=== PATIENT | male | born 1965 | race Caucasian/White ===

== ENCOUNTER 2024-10-13 07:06 | Emergency (ER) | payer OTHER, SELFPAY ==
[2024-10-13] VITALS (34 sets, daily range): BP systolic 126–174; BP diastolic 68–100; PULSE 61–73; RESP 11–20; TEMP 36.6; O2SAT 97–100
--- NOTE | 2024-10-13 08:06 | W.ED.GENAD ---
Discharge Plan Disposition Patient Disposition: Home Condition: Stable Discharge Details Clinical Impression: GIB (gastrointestinal bleeding), Hypokalemia, Thrombocytopenia, Hyperbilirubinemia Primary Care Provider: Nini Sanchez ED Provider: Merrick Robledo Home Meds and New Rx's Prescriptions: Continued vitamin A 2,400 mcg capsule 2,400 mcg PO DAILY chlorthalidone 50 mg tablet 50 mg PO DAILY carvedilol 6.25 mg tablet 6.25 mg PO DAILY Rx Instructions: must administer with a meal/food Discontinued Xarelto 20 mg tablet 20 mg PO DAILY Rx Instructions: must administer with evening meal Discharge Instructions Instructions: Hypokalemia, Bloody Stools, Adult ED Additional Instructions: Your potassium was found to be low today. You received potassium replacement by IV and oral routes. See attached discharge instructions for hypokalemia. Please follow-up with your primary care physician at the [facility]. You should be seen in follow-up within the next 2 days. Hold your Xarelto at this time given risk of bleeding. Please follow-up with hematology as soon as possible for recommendations regarding ongoing anticoagulation. Return to the emergency department immediately for any worsening or new concerning symptoms. Referrals: Nini Sanchez [Primary Care Provider, Medicine] Discharge Data Discharge Date/Time-TO BE ENTERED AT DEPARTURE: 10/13/24 11:24 HPI General Mode of arrival: ambulatory. Date/Time Provider Initiated Documentation: 10/13/24 07:58. Limitations to Documentation: no limitations. Information obtained by: patient. HPI Narrative: 58-year-old male with complex medical history of alcoholic cirrhosis of the liver, stage III colon cancer status postresection remotely, DVT and pulmonary embolism, had been on anticoagulation including Xarelto for years, has been off Xarelto for about a year while incarcerated, restarted 2 to 3 weeks ago at 20 mg daily dose, now experiencing black stool and bleeding from his mouth. Patient notes since restarting Xarelto 2 to 3 weeks ago, he has been having black stool, 5 times over the past 2 weeks as well as bleeding from his mouth at night. He states he stopped taking Xarelto 2 days ago and bleeding has since resolved. He has had normal bowel movements since. He denies pain. No shortness of breath. He does note chronic bilateral lower extremity edema that worsens during the day and improves at night with his legs elevated. Patient does have IVC filter. Related Data Home Medications ?Medication ?Instructions ?Recorded ?Confirmed carvedilol 6.25 mg tablet 6.25 mg PO DAILY 10/13/24 10/13/24 chlorthalidone 50 mg tablet 50 mg PO DAILY 10/13/24 10/13/24 vitamin A 2,400 mcg capsule 2,400 mcg PO DAILY 10/13/24 10/13/24 Allergies Allergy/AdvReac Type Severity Reaction Status Date / Time No Known Allergies Allergy Unverified 10/13/24 07:18 General Stated Complaint: GI Bleed LAURA: 3 Review of Systems All systems reviewed & are unremarkable except as noted in HPI and below Constitutional Constitutional: Denies fever(s) Cardiovascular Cardiovascular: Denies chest pain Exam Const General: cooperative and no acute distress HENMT Mouth: moist mucous membranes Eyes Conjunctivae: normal conjunctivae Sclera: normal sclerae Neck Neck: trachea midline and supple Resp Auscultation: clear to auscultation bilaterally, no rales, no rhonchi and no wheezes Cardio Rate: regular rate and not tachycardic Rhythm: regular rhythm GI Palpation: soft, not firm, no guarding, no masses, not rigid and nontender Skin General skin exam: no rashes or lesions noted Neuro General: patient alert, patient awake and tone normal Extrem General: edema Laterality: bilateral Psych Appearance: grossly normal Mental Status: mental status grossly normal Course Vital Signs Vital signs: Vital Signs Temperature 36.6 C 10/13/24 07:16 Pulse 63 10/13/24 07:16 Respiratory Rate 20 10/13/24 07:16 Blood Pressure 126/72 10/13/24 07:16 Pulse Oximetry 97 10/13/24 07:16 Temperature 36.6 C 10/13/24 07:16 Temperature Source Oral 10/13/24 07:16 Pulse 63 10/13/24 07:16 Respiratory Rate 20 10/13/24 07:16 Blood Pressure 126/72 10/13/24 07:16 Blood Pressure Position Sitting 10/13/24 07:16 Pulse Oximetry 97 10/13/24 07:16 Oxygen Delivery Method Room Air 10/13/24 07:16 Oxygen Flow Rate 0 10/13/24 07:16 Pain Level 0 10/13/24 07:16 Medical Decision Making 820 -- 58yo male with complex medical history including stage III colon cancer status post remote resection, alcoholic cirrhosis of the liver, DVT and PE, previously on Xarelto, restarted 2 to 3 weeks ago and then subsequently developed black stool and intermittent bleeding from his mouth. Patient is hemodynamically stable. Bleeding has stopped since he has been off Xarelto for 2 days. -- Hypokalemia with potassium 2.9 noted. I will give potassium IV 20 mill equivalents and 40 mill equivalents p.o. 1100 -- Potassium replacement completed. Patient reassessed and remains hemodynamically stable. I reviewed outside medical record from [facility] [place]. Patient has known chronic thrombocytopenia. I had a discussion of risk-benefit of anticoagulation with the patient. Plan will be to hold anticoagulation at this time. Patient will need outpatient follow-up with hematology and may benefit from lower dosage of anticoagulant versus alternative anticoagulant. Medical screening exam was performed and no emergent medical condition identified. Lab Data Lab results reviewed: Yes I reviewed the patient's lab results. Labs: Laboratory Tests Range/Units 10/13/24 08:04 WBC (4.4-10.8) 10^3/uL 5.62 RBC (4.36-5.78) 10^6/uL 3.98 L Hgb (13.5-17.5) g/dL 13.3 L Hct (40.0-50.0) % 38.7 L MCV (80-95) fL 97 H MCH (27.0-33.0) pg 33.4 H MCHC (32.0-36.0) % 34.4 RDW (11.8-14.1) % 14.0 Plt Count (130-400) 10^3/uL 82 L MPV (8.0-11.0) fL 11.7 H Immature Gran % % 0.5 Neutrophils % % 46.4 Lymphocytes % % 26.5 Monocytes % % 20.8 Eosinophils % % 5.3 Basophils % % 0.5 Nucleated RBC % (0.0-0.3) % 0.0 Absolute Neutrophils (1.2-6.7) 10^3/uL 2.60 Absolute Lymphocytes (1.2-3.4) 10^3/uL 1.49 Absolute Monocytes (0.1-0.8) 10^3/uL 1.17 H Absolute Eosinophils (0.0-0.7) 10^3/uL 0.30 Absolute Basophils (0.0-0.2) 10^3/uL 0.03 Sodium (136-145) mmol/L 139 Potassium (3.5-5.1) mmol/L 2.9 L* Chloride (98-107) mmol/L 105 Carbon Dioxide (21.0-32.0) mmol/L 32.5 H Anion Gap (3-11) mmol/L 1.5 L BUN (7-18) mg/dL 12 Creatinine (0.70-1.30) mg/dL 1.0 Est GFR (CKD-EPI 2020) (mL/min/1.73m2) 86.70 Glucose (74-106) mg/dL 102 Calcium (8.5-10.1) mg/dL 8.9 Total Bilirubin (0.2-1.0) mg/dL 1.8 H AST (15-37) U/L 66 H ALT (16-63) U/L 30 Alkaline Phosphatase (46-116) U/L 143 H Total Protein (6.4-8.2) g/dL 7.6 Albumin (3.4-5.0) g/dL 2.7 L ABO/Rh A Positive Antibody Screen NEGATIVE PFSH All Active Problems (Updated 10/13/24 @ 08:41 by Merrick Robledo MD) Hyperbilirubinemia (Acute) Thrombocytopenia (Chronic) Hypokalemia (Acute) GIB (gastrointestinal bleeding) (Chronic) Medical History Xerosis cutis Thrombocytopenia Pulmonary embolism with acute cor pulmonale Alcoholic cirrhosis of liver Social History Smoking/Tobacco Use Status: Never Smoking risk assessment performed?: Yes Alcohol Intake: current Details: drank heavily for quite a while currently none Housing: other
[2024-10-13 08:17] LABS: Abs Immature Grans 0.03 10^3/uL (0.0-0.06); Absolute Basophil Count 0.03 10^3/uL (0.0-0.2); Absolute Lymphocyte Count 1.49 10^3/uL (1.2-3.4); Absolute Monocyte Count 1.17 10^3/uL (0.1-0.8); Basophils % 0.5 %; Eosinophils % 5.3 %; HCT 38.7 % (40.0-50.0); HGB 13.3 g/dL (13.5-17.5); Immature Grans % 0.5 %; Lymphocytes % 26.5 %; MCH 33.4 pg (27.0-33.0); MCHC 34.4 % (32.0-36.0); MCV 97 fL (80-95); MPV 11.7 fL (8.0-11.0); Monocytes % 20.8 %; Neutrophils % 46.4 %; RBC 3.98 10^6/uL (4.36-5.78); RDW-SD 50.2 fL; WBC 5.62 10^3/uL (4.4-10.8)
[2024-10-13 08:26] LABS: Platelet Count 82 10^3/uL (130-400)
[2024-10-13 08:30] LABS: ALT 30 U/L (16-63); AST 66 U/L (15-37); Albumin 2.7 g/dL (3.4-5.0); Alkaline Phosphatase 143 U/L (46-116); Anion Gap 1.5 mmol/L (3-11); BUN 12 mg/dL (7-18); Bilirubin, Total 1.8 mg/dL (0.2-1.0); CO2 32.5 mmol/L (21.0-32.0); Calcium 8.9 mg/dL (8.5-10.1); Chloride 105 mmol/L (98-107); Glucose 102 mg/dL (74-106); Sodium 139 mmol/L (136-145); Total Protein 7.6 g/dL (6.4-8.2)
[2024-10-13 08:32] LABS: Potassium 2.9 mmol/L (3.5-5.1)
[2024-10-13] MEDS: Potassium Chloride 20 MEQ TABCR 40 MEQ PO (08:41)
[2024-10-13] MEDS: POTASSIUM CHLORIDE 20 MEQ/100 ML BAG 50 MEQ IV_INF (08:42)
[2024-10-13] MEDS: Normal Saline 1,000 ML 125 ML IV (08:53)
== END 2024-10-13 11:24 | disposition home or self-care (01) ==
PROVIDERS: Emergency Provider Student in an Organized Health Care Education/Training Program; PCP Nurse Practitioner Adult Health
DX: D69.6 Thrombocytopenia, unspecified; E80.6 Other disorders of bilirubin metabolism; K92.2 Gastrointestinal hemorrhage, unspecified; E87.6 Hypokalemia; Z85.038 Personal history of other malignant neoplasm of large intestine; Z87.19 Personal history of other diseases of the digestive system
CPT/HCPCS: 99284 ×2; 36415; 80053; 86850; 86900; 86901; 96360; 96361; 85025; J3480